=== PATIENT | female | born 1935 | race Caucasian/White ===

== ENCOUNTER 2017-08-03 11:23 | Emergency (ER) | payer MEDICAID ==
[2017-08-03] MEDS: IPRATROPIUM (NEB) 0.5 MG/2.5 ML AMP INH (12:21)
[2017-08-03] MEDS: ALBUTEROL 0.083% (NEB) 2.5 MG/3 ML AMP INH (12:21)
[2017-08-03 12:33] LABS: ADD MAN DIFF? NO
[2017-08-03 12:36] LABS: WHITE BLOOD COUNT 10.2 10^3/ul (4.8-10.8)
[2017-08-03 12:36] LABS: BASOPHIL # 0.1 10^3/ul (0.0-0.1); BASOPHILS % 0.9 % (0.0-2.0); EOSINOPHILS # 0.1 10^3/ul (0.0-0.5); HEMATOCRIT 35.5 % (37.0-47.0); HEMOGLOBIN 11.4 g/dl (12.0-16.0); LYMPHOCYTES # 3.7 10^3/ul (0.8-2.9); LYMPHOCYTES % 36.5 % (15.0-51.0); MEAN CORPUSCULAR HEMOGLOBIN 30.2 pg (29.0-33.0); MEAN CORPUSCULAR HGB CONC 32.1 g/dl (32.0-37.0); MEAN CORPUSCULAR VOLUME 93.9 fl (82.0-101.0); MEAN PLATELET VOLUME 8.6 fl (7.4-10.4); MONOCYTE # 0.9 10^3/ul (0.3-0.9); NEUTROPHIL # 5.3 10^3/ul (1.6-7.5); NEUTROPHILS % 52.2 % (39.0-77.0); PLATELET COUNT 308 10^3/UL (140-415); RED BLOOD COUNT 3.78 10^6/ul (4.20-5.40); RED CELL DISTRIBUTION WIDTH 15.5 % (11.5-14.5)
[2017-08-03 12:53] LABS: PROTIME 13.3 Sec (11.9-14.9)
[2017-08-03 12:54] LABS: PARTIAL THROMBOPLASTIN TIME 27.1 Sec (25.0-35.0)
[2017-08-03 12:55] LABS: AADO2 Arterial 14.1 mmHg (7.0-24.0); ANION GAP 12 (8-16); Allen Test ACCEPTAB; Arterial Base Excess -6.1 mmol/L (-3.0-3); Arterial Blood Gas Oxygen Sat 99.4 mmHG (95.0-100.0); Arterial COHb 0.3 % (0.0-3.0); Arterial Fraction of Oxyhgb 98.8 % (93.0-99.0); Arterial HCO3 18.5 mmol/L (22.0-26.0); Arterial MetHb 0.3 % (0.0-1.5); Arterial Total Hemglobin 11.7 g/dl (12.0-18.0); Arterial pCO2 33.4 mmhg (35-45); MODE MASK - SIMPLE; Site Right Radial
[2017-08-03 13:00] LABS: ALANINE AMINOTRANSFERASE 32 IU/L (13-69); ALBUMIN 3.2 g/dl (3.3-4.9); ALKALINE PHOSPHATASE 80 IU/L (42-121); ASPARTATE AMINO TRANSFERASE 18 IU/L (15-46); BLOOD UREA NITROGEN 18 mg/dl (7-20); CALCIUM 9.3 mg/dl (8.4-10.2); CARBON DIOXIDE 20 mmol/L (21-31); CHLORIDE 113 mmol/L (97-110); CREATININE 0.76 mg/dl (0.44-1.00); GLUCOSE 93 mg/dl (70-220); POTASSIUM 4.7 mmol/L (3.5-5.1); SODIUM 140 mmol/L (135-144); TOTAL PROTEIN 6.1 g/dl (6.1-8.1)
[2017-08-03 13:14] LABS: B-TYPE NATRIURETIC PEPTIDE 1570 PG/ML (0-450); TROPONIN-I < 0.012 ng/ml (0.00-0.12)
== END 2017-08-03 15:50 | disposition home or self-care (01) ==
LOC: E/R 11:23
DX: R06.02 Shortness of breath (principal); Z79.82 Long term (current) use of aspirin
CPT/HCPCS: 36600; 71045; 74176; 80053; 82803; 83880; 84484; 85025; 85610; 85730; 93005; 94664; 99285-25

== ENCOUNTER 2017-09-14 13:01 | Emergency (ER) | payer MEDICAID ==
[2017-09-14 21:30] LABS: ADD MAN DIFF? NO
[2017-09-14 21:34] LABS: WHITE BLOOD COUNT 11.6 10^3/ul (4.8-10.8)
[2017-09-14 21:34] LABS: BASOPHIL # 0.1 10^3/ul (0.0-0.1); BASOPHILS % 1.2 % (0.0-2.0); EOSINOPHILS # 0.2 10^3/ul (0.0-0.5); EOSINOPHILS % 1.7 % (0.0-7.0); HEMATOCRIT 34.7 % (37.0-47.0); HEMOGLOBIN 11.1 g/dl (12.0-16.0); LYMPHOCYTES % 26.1 % (15.0-51.0); MEAN CORPUSCULAR HEMOGLOBIN 30.6 pg (29.0-33.0); MEAN CORPUSCULAR VOLUME 95.6 fl (82.0-101.0); MEAN PLATELET VOLUME 8.4 fl (7.4-10.4); MONOCYTE # 1.2 10^3/ul (0.3-0.9); MONOCYTES % 9.9 % (0.0-11.0); NEUTROPHILS % 60.3 % (39.0-77.0); PLATELET COUNT 510 10^3/UL (140-415); RED BLOOD COUNT 3.63 10^6/ul (4.20-5.40); RED CELL DISTRIBUTION WIDTH 14.6 % (11.5-14.5)
[2017-09-14 21:58] LABS: ALANINE AMINOTRANSFERASE 21 IU/L (13-69); ALBUMIN 3.9 g/dl (3.3-4.9); ALBUMIN/GLOBULIN RATIO 1.08; ALKALINE PHOSPHATASE 106 IU/L (42-121); ANION GAP 17 (8-16); ASPARTATE AMINO TRANSFERASE 15 IU/L (15-46); BILIRUBIN,INDIRECT 0.1 mg/dl (0-1.1); BILIRUBIN,TOTAL 0.1 mg/dl (0.2-1.3); BLOOD UREA NITROGEN 20 mg/dl (7-20); CALCIUM 9.5 mg/dl (8.4-10.2); CARBON DIOXIDE 23 mmol/L (21-31); CHLORIDE 110 mmol/L (97-110); CREATININE 1.03 mg/dl (0.44-1.00); GLUCOSE 91 mg/dl (70-220); INR 0.96; POTASSIUM 4.3 mmol/L (3.5-5.1); PROTIME 12.9 Sec (11.9-14.9); SODIUM 146 mmol/L (135-144); TOTAL PROTEIN 7.5 g/dl (6.1-8.1)
[2017-09-14 22:08] LABS: B-TYPE NATRIURETIC PEPTIDE 420 PG/ML (0-450); TROPONIN-I < 0.012 ng/ml (0.00-0.12)
== END 2017-09-14 22:54 | disposition home or self-care (01) ==
LOC: E/R 13:01
DX: K46.9 Unspecified abdominal hernia without obstruction or gangrene (principal); I50.9 Heart failure, unspecified; I10 Essential (primary) hypertension; Z43.3 Encounter for attention to colostomy; Z76.0 Encounter for issue of repeat prescription; Z79.82 Long term (current) use of aspirin; Z85.038 Personal history of other malignant neoplasm of large intestine
CPT/HCPCS: 71045; 80053; 83880; 84484; 85025; 85610; 93005; 99285-25

== ENCOUNTER → 2017-11-11 | Outpatient (CLI) | payer MEDICAID ==
[~2017-11-11] MED LIST: IOHEXOL 300MG/ML 30 ML BTL; SOD CHLORIDE 0.9% 500 ML
[2017-11-11 12:17] LABS: CREATININE 0.93 mg/dl (0.44-1.00)
[2017-11-11 12:17] LABS: BLOOD UREA NITROGEN 18 mg/dl (7-20)
== END | disposition home or self-care (01) ==
LOC: LAB 11:17
DX: C18.9 Malignant neoplasm of colon, unspecified (principal)
CPT/HCPCS: 74176; 82565; 84520

== ENCOUNTER 2017-11-29 08:05 | Inpatient (IN) | payer MEDICAID ==
[~2017-11-29 08:05] MED LIST changes: +CEFAZOLIN 1 GM INJ; -IOHEXOL 300MG/ML 30 ML BTL; -SOD CHLORIDE 0.9% 500 ML
[2017-11-29] MEDS ORDERED: LIDOCAINE 2% (SDV) 5 ML INJ (11:04)
[2017-11-29] MEDS ORDERED: PROPOFOL 20 ML (11:04)
[2017-11-29] MEDS ORDERED: SUCCINYLCHOLINE CHLORIDE 100 MG/5 ML SYG IV (11:04)
[2017-11-29] MEDS ORDERED: ROCURONIUM 50 MG INJ ×2 (11:04→14:12)
[2017-11-29] MEDS ORDERED: BUPIVACAINE 0.75%/DEXT (SPINAL) 2 ML INJ (11:04)
[2017-11-29] MEDS ORDERED: morphine SULFATE/PF (10 MG/10 ML) INJ (11:04)
[2017-11-29] MEDS ORDERED: PHENYLephrine (100 MCG/ML) 5ML SYG (11:28)
[2017-11-29] MEDS: CEFAZOLIN 2 GM/50 ML (PMX) 50 ML IVPB ×2 (11:30→16:37)
[2017-11-29] MEDS ORDERED: metroNIDAZOLE 500 MG/NS (PMX) 100 ML IVPB (12:06)
[2017-11-29] MEDS ORDERED: DEXAMETHASONE 4 MG/ML 1 ML INJ (12:52)
[2017-11-29] MEDS ORDERED: ONDANSETRON 4 MG INJ ×2 (12:52→14:43)
[2017-11-29] MEDS ORDERED: FAMOTIDINE 20 MG INJ (12:52)
[2017-11-29] MEDS ORDERED: EPHEDrine SULFATE 50 MG/5 ML SYG (12:52)
[2017-11-29] MEDS: BUPIVACAINE 0.5%/EPI (SDV) 30 ML INJ (14:20)
[2017-11-29] MEDS: LIDOCAINE 1% (MPF) 30 ML INJ (14:20)
[2017-11-29] MEDS ORDERED: SUGAMMADEX SODIUM 200 MG/2 ML VIAL IV (14:24)
[2017-11-29] MEDS ORDERED: MEPERIDINE 25 MG INJ (14:43)
[2017-11-29] MEDS ORDERED: MEPERIDINE 25 MG INJ IV (15:00)
[2017-11-29] MEDS ORDERED: HYDROmorphONE 0.5 MG/0.5 ML SYG IV ×2 (15:00)
[2017-11-29] MEDS ORDERED: PROCHLORPERAZINE 10 MG INJ IV (15:00)
[2017-11-29] MEDS ORDERED: HYDROmorphONE (0.2 MG/ML) 10ML SYG IV ×3 (15:00)
[2017-11-29] MEDS ORDERED: hydrALAzine 20 MG INJ IV (15:00)
[2017-11-29] MEDS ORDERED: FENTAnyl 50 MCG/ML VIAL IV (15:00)
[2017-11-29] MEDS ORDERED: DIPHENHYDRAMINE 50 MG INJ IV (15:00)
[2017-11-29] MEDS ORDERED: NALOXONE (0.4 MG/ML) INJ IV (15:00)
[2017-11-29] MEDS ORDERED: ONDANSETRON 4 MG INJ IV (15:00)
[2017-11-29] MEDS ORDERED: NALBUPHINE HCL (10 MG/1 ML) INJ IV (15:00)
[2017-11-29] MEDS: MEPERIDINE 25 MG INJ IV (15:49)
[2017-11-29] MEDS: metroNIDAZOLE 500 MG/NS (PMX) 100 ML IVPB (16:45)
[2017-11-29] MEDS: ONDANSETRON 4 MG INJ IV (16:45)
[2017-11-30] MEDS: CEFAZOLIN 2 GM/50 ML (PMX) 50 ML IVPB ×2 (00:09→07:57)
[2017-11-30] MEDS: metroNIDAZOLE 500 MG/NS (PMX) 100 ML IVPB ×2 (00:10→10:42)
[2017-11-30 05:49] LABS: ADD MAN DIFF? NO
[2017-11-30] MEDS: PANTOPRAZOLE 40 MG INJ IV (05:56)
[2017-11-30 05:58] LABS: WHITE BLOOD COUNT 17.3 10^3/ul (4.8-10.8)
[2017-11-30 05:58] LABS: BASOPHILS % 0.2 % (0.0-2.0); HEMATOCRIT 32.4 % (37.0-47.0); HEMOGLOBIN 10.2 g/dl (12.0-16.0); LYMPHOCYTES # 1.9 10^3/ul (0.8-2.9); LYMPHOCYTES % 10.7 % (15.0-51.0); MEAN CORPUSCULAR HEMOGLOBIN 31.4 pg (29.0-33.0); MEAN CORPUSCULAR HGB CONC 31.5 g/dl (32.0-37.0); MEAN CORPUSCULAR VOLUME 99.7 fl (82.0-101.0); MONOCYTES % 5.9 % (0.0-11.0); NEUTROPHIL # 14.3 10^3/ul (1.6-7.5); NEUTROPHILS % 82.7 % (39.0-77.0); PLATELET COUNT 229 10^3/UL (140-415); RED BLOOD COUNT 3.25 10^6/ul (4.20-5.40); RED CELL DISTRIBUTION WIDTH 12.8 % (11.5-14.5)
[2017-11-30 06:20] LABS: ANION GAP 16 (8-16); BLOOD UREA NITROGEN 15 mg/dl (7-20); CALCIUM 8.6 mg/dl (8.4-10.2); CARBON DIOXIDE 24 mmol/L (21-31); CHLORIDE 108 mmol/L (97-110); CREATININE 0.85 mg/dl (0.44-1.00); GLUCOSE 133 mg/dl (70-220); POTASSIUM 4.6 mmol/L (3.5-5.1); SODIUM 143 mmol/L (135-144)
[2017-11-30] MEDS: HYDROCODONE/APAP (5/325) TAB PO ×3 (07:56→22:07)
[2017-11-30] MEDS: D5W-0.45 NACL + KCL 20 MEQ 1,000 ML IV (18:59)
[2017-12-01] MEDS: PANTOPRAZOLE 40 MG INJ IV (06:52)
[2017-12-01] MEDS: D5W-0.45 NACL + KCL 20 MEQ 1,000 ML IV ×2 (06:53→21:34)
[2017-12-01] MEDS: HYDROmorphONE 0.5 MG/0.5 ML SYG IV ×3 (07:50→15:02)
[2017-12-01] MEDS: HYDROCODONE/APAP (5/325) TAB PO (19:58)
[2017-12-02] MEDS: PANTOPRAZOLE 40 MG INJ IV (05:07)
[2017-12-02] MEDS: HYDROCODONE/APAP (5/325) TAB PO ×3 (05:07→16:16)
[2017-12-02] MEDS: D5W-0.45 NACL + KCL 20 MEQ 1,000 ML IV (11:49)
[2017-12-02] MEDS: ONDANSETRON 4 MG INJ IV (18:04)
[2017-12-02] MEDS: METOCLOPRAMIDE 10 MG INJ IV (21:56)
[2017-12-03] MEDS: ONDANSETRON 4 MG INJ IV (00:27)
[2017-12-03] MEDS: PANTOPRAZOLE 40 MG INJ IV (05:16)
[2017-12-03] MEDS: ASPIRIN 325 MG TAB PO (08:37)
[2017-12-03 14:04] LABS: ADD MAN DIFF? NO
[2017-12-03 14:08] LABS: BASOPHILS % 0.3 % (0.0-2.0); EOSINOPHILS # 0.1 10^3/ul (0.0-0.5); EOSINOPHILS % 0.9 % (0.0-7.0); HEMATOCRIT 33.1 % (37.0-47.0); HEMOGLOBIN 10.6 g/dl (12.0-16.0); LYMPHOCYTES # 1.8 10^3/ul (0.8-2.9); LYMPHOCYTES % 16.4 % (15.0-51.0); MEAN CORPUSCULAR HEMOGLOBIN 31.3 pg (29.0-33.0); MEAN CORPUSCULAR VOLUME 97.6 fl (82.0-101.0); MEAN PLATELET VOLUME 9.2 fl (7.4-10.4); MONOCYTE # 0.7 10^3/ul (0.3-0.9); MONOCYTES % 6.7 % (0.0-11.0); NEUTROPHIL # 8.1 10^3/ul (1.6-7.5); NEUTROPHILS % 75.2 % (39.0-77.0); PLATELET COUNT 266 10^3/UL (140-415); RED BLOOD COUNT 3.39 10^6/ul (4.20-5.40); RED CELL DISTRIBUTION WIDTH 12.5 % (11.5-14.5)
[2017-12-03 14:08] LABS: WHITE BLOOD COUNT 10.8 10^3/ul (4.8-10.8)
[2017-12-04] MEDS: PANTOPRAZOLE 40 MG INJ IV (05:57)
[2017-12-04] MEDS: ASPIRIN 325 MG TAB PO (08:56)
[2017-12-04] MEDS: HYDROCODONE/APAP (5/325) TAB PO (21:11)
[2017-12-05] MEDS: PANTOPRAZOLE 40 MG INJ IV (05:53)
[2017-12-05] MEDS: ASPIRIN 325 MG TAB PO (08:47)
[2017-12-05] MEDS: HYDROCODONE/APAP (5/325) TAB PO (18:32)
== END 2017-12-05 19:50 | disposition home or self-care (01) | DRG 330 ==
LOC: SDS 08:05 → MS1 15:50 → SDS 15:14 → REC 15:14 → MS1 15:50
PROC: 0DBL0ZZ Excision of Transverse Colon, Open Approach (ICD-10-PCS; principal; 2017-11-29 10:00)
PROC: 0DBB0ZZ Excision of Ileum, Open Approach (ICD-10-PCS; 2017-11-29 10:00)
PROC: 0DNB0ZZ Release Ileum, Open Approach (ICD-10-PCS; 2017-11-29 10:00)
PROC: 0DNL0ZZ Release Transverse Colon, Open Approach (ICD-10-PCS; 2017-11-29 10:00)
PROC: 0HR7XK3 Replacement of Abdomen Skin with Nonautologous Tissue Substitute, Full Thickness, External Approach (ICD-10-PCS; 2017-11-29 10:00)
DX: K91.89 Other postprocedural complications and disorders of digestive system (principal); C18.2 Malignant neoplasm of ascending colon; I48.2 Chronic atrial fibrillation; D64.9 Anemia, unspecified; I10 Essential (primary) hypertension; K20.9 Esophagitis, unspecified; K66.0 Peritoneal adhesions (postprocedural) (postinfection); K29.50 Unspecified chronic gastritis without bleeding; Z53.31 Laparoscopic surgical procedure converted to open procedure; Y84.8 Other medical procedures as the cause of abnormal reaction of the patient, or of later complication, without mention of misadventure at the time of the procedure; Y92.019 Unspecified place in single-family (private) house as the place of occurrence of the external cause; K91.0 Vomiting following gastrointestinal surgery; Z79.82 Long term (current) use of aspirin
CPT/HCPCS: 80048; 85025; 87086; 88309